=== PATIENT | male | born 1970 | race African-American/Black ===

== ENCOUNTER 2018-07-01 07:35 | Emergency (ER) | payer MEDICARE ==
[~2018-07-01] VITALS: Ht 180.3 cm; Wt 125.9 kg
[2018-07-01 07:37] VITALS: Ht 180.3 cm; Wt 125.9 kg
[2018-07-01] MEDS ORDERED: ZYLOPRIM300 MG PO (07:40)
[2018-07-01] MEDS ORDERED: GLUCOPHAGE1000 MG PO (07:40)
[2018-07-01] MEDS ORDERED: ZESTRIL40 MG PO (07:41)
[2018-07-01] MEDS ORDERED: NORCO 10-325 TA1 TAB PO (07:41)
[2018-07-01 08:11] LABS: BASOPHILS 0.9 % (0-2); EOSINOPHILS 2.4 % (0-7); HEMATOCRIT 42.3 % (42.0-54.0); HEMOGLOBIN 14.1 g/dL (13.5-17.5); IMMATURE GRANULOCYTES 0.2 % (0-5); LYMPHOCYTES 42.3 % (15-50); MCH 27.5 pg (26.0-34.0); MCHC 33.3 g/dL (31.0-37.0); MCV 82.6 fL (80.0-100.0); MEAN PLATELET VOLUME 9.9 fL (7.4-10.4); MONOCYTES 10.4 % (2-11); NEUTROPHILS 43.8 % (40-80); PLATELET COUNT 240 10x3/uL (130-400); RBC 5.12 10x6/uL (4.20-6.10); RDW 14.6 % (11.5-14.5); WBC 4.2 10x3/uL (4.8-10.8)
[2018-07-01 08:27] LABS: ALKALINE PHOSPHATASE 78 U/L (46-116); ALT (SGPT) 19 U/L (10-68); BILIRUBIN - TOTAL 0.76 mg/dL (0.2-1.3); CALC OSMOLALITY 278 mosm/kg (275-300); CALCIUM 8.6 mg/dL (8.5-10.1); CARBON DIOXIDE 27.6 mmol/L (21.0-32.0); CHLORIDE - SERUM 106 mmol/L (98-107); GLUCOSE 96 mg/dL (74-106); POTASSIUM - SERUM 3.8 mmol/L (3.5-5.1); SODIUM 141 mmol/L (136-145); UREA NITROGEN 8 mg/dL (7-18); eGFR NON AFRICAN AMERICAN 85 mL/min (90-120)
[2018-07-01 08:28] LABS: APPEARANCE CLEAR (CLEAR); BACTERIA NONE SEEN /hpf (NONE SEEN); BILIRUBIN NEGATIVE (NEGATIVE); COLOR YELLOW (YELLOW); EPITHELIAL CELLS NSEEN /hpf (0-5); GLUCOSE NEGATIVE (NEGATIVE); KETONE NEGATIVE (NEGATIVE); NITRITE NEGATIVE (NEGATIVE); PROTEIN 3+ mg/dL (NEGATIVE); RED CELLS - URINE NONE SEEN /hpf (0-5); UROBILINOGEN NORMAL (NORMAL); WHITE CELLS - URINE NSEEN /hpf (0-5)
[2018-07-01 08:37] LABS: THYROID STIMULATING HORMONE 1.19 uIU/mL (0.36-3.74); URIC ACID 6.4 mg/dL (2.6-7.2)
[2018-07-01] MEDS ORDERED: NORCO 7.5/325 T1 TA1 PO (08:39)
[2018-07-01 08:55] VITALS: BP 157/90
== END 2018-07-01 08:56 | disposition home or self-care (01) ==
LOC: D.ER 07:35
PROVIDERS: Emergency Medicine
DX: G44.209 Tension-type headache, unspecified, not intractable (principal); M54.5 Low back pain; E11.9 Type 2 diabetes mellitus without complications; I10 Essential (primary) hypertension; R00.1 Bradycardia, unspecified